=== PATIENT | female | born 1945 | race Caucasian/White ===

== ENCOUNTER → 2023-06-09 06:54 | Outpatient (REF) | payer MEDICARE, OTHER, SELFPAY ==
[2023-06-09 07:55] LABS: % Basophils 0.6 % (0-2); % Eosinophils 2.9 % (0-6); % Immature Granulocytes 0.2 % (0-0.5); % Lymphocytes 27.5 % (20.5-51.1); % Monocytes 10.3 % (1.7-9.3); % Neutrophils 58.5 % (42.2-75.2); Absolute Eosinophils 0.2 10^3/uL (0-0.7); Absolute Lymphocytes 1.8 10^3/uL (1.2-3.4); Absolute Monocytes 0.7 10^3/uL (0.1-0.6); Absolute Neutrophils 3.9 10^3/uL (1.4-6.5); Hematocrit 38.3 % (37.0-47.0); Hemoglobin 13.2 g/dL (12.0-16.0); Mean Corp Hgb Conc. 34.5 g/dL (33.0-37.0); Mean Corpuscular Hgb 31.1 pg (27.0-31.0); Mean Corpuscular Volume 90.1 fL (81.0-99.0); Mean Platelet Volume 11.3 fL (7.4-10.4); Nucleated Red Blood Cells % 0 %; Platelet Count 217 10^3/uL (130-400); Red Blood Cell Count 4.25 10^6/uL (4.20-5.40); Red Cell Dist. Width 13.4 % (11.5-14.5); White Blood Cell Count 6.6 10^3/uL (4.8-10.8)
[2023-06-09 08:24] LABS: ALT (SGPT) 15 U/L (0-35); AST (SGOT) 24 U/L (14-36); Albumin 4.1 g/dl (3.5-5.0); Alkaline Phosphatase 102 U/L (38-126); Blood Urea Nitrogen 23 mg/dl (7-17); Calcium 9.2 mg/dl (8.4-10.2); Carbon Dioxide 24 mmol/L (22-30); Chloride 107 mmol/L (98-107); Glucose 78 mg/dl (70-99); HDL Cholesterol 87 mg/dl; LDL Cholesterol, Calculated 56 mg/dl; Potassium 4.2 mmol/L (3.5-5.1); Sodium 137 mmol/L (135-145); Total Bilirubin 0.5 mg/dl (0.2-1.3); Total Cholesterol 155 mg/dl (50-199); Total Protein 6.6 g/dl (6.3-8.2); Triglyceride 63 mg/dl (10-149); Very Low Density Lipoprotein 12 mg/dl (0-30); eGFR > 60.00
== END ==
LOC: REG 06:54
PROVIDERS: ATTENDING PHYSICIAN Physician Assistant
DX: R35.0 Frequency of micturition (principal); I10 Essential (primary) hypertension; E78.5 Hyperlipidemia, unspecified; I25.10 Atherosclerotic heart disease of native coronary artery without angina pectoris; K21.9 Gastro-esophageal reflux disease without esophagitis; J84.9 Interstitial pulmonary disease, unspecified
CPT/HCPCS: 36415; 80053; 80061; 84443; 85025

== ENCOUNTER 2023-06-26 19:54 | Emergency (ER) | payer MEDICARE, OTHER, SELFPAY ==
[2023-06-26 19:56] VITALS: BP 160/90
--- NOTE | 2023-06-26 22:23 | ED.GENMED ---
History of Present Illness
General
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
Source: patient
Exam Limitations: none
Time Seen by Provider: 06/26/23 21:47
Travel History
Have you had any contact with someone who has COVID-19?: No
Do you have any symptoms of coronavirus? Fever > 100 degrees, chills, cough, shortness of breath, sore throat, loss of taste or smell, muscle aches, or headache?: No
History of Present Illness
History of Present Illness:
This is a 77 year old female that comes in with c/o bladder issues. States that she started with symptoms of a bladder infection in February. States that she has this pelvic pressure. Patient has had a urine done and it was negative. States that
she has had lower abd discomfort. Today she was out and she felt something in her underwear like she was wearing a pad. State that she went to check and there was a like a Tennis ball hanging out of her Vagina. States that since that time it has
receded. States that she has seen her PCP and was told to follow up with the Urologist. Denies any fever, chills, chest pain, SOB, nausea, vomiting, diarrhea, headache, dizziness, urinary burning.
Past History
Past History
ED Past Medical History: CAD (40% LAD), COPD (Mild, ), GERD, HTN, Hypercholesterolemia, [place], Psychiatric (Anxiety) and Other (Vocal cord dysfunction, back and neck pain, UTi, Anemia, GI bleeding, Vertigo, )
ED Past Surgical History: Cardiac (Stent, ), Gynecological (Partial hysterectomy, Ovary then removed), Orthopedic (Carpal tunnel, ), Tonsilectomy and Other (Cataracts, Polyp removed from throat, )
Social History
Tobacco: Former smoker
Alcohol: Occasional
Drug: None
Personal:
Living: with family
Employment: Retired
Family History
Family History: CAD
Review of Systems
Review of Systems
All Other Systems: ROS reviewed and negative except as documented in HPI and ROS
Constitutional: Reports no symptoms; Denies fever or chills
EENT: Reports no symptoms
Respiratory: Reports no symptoms; Denies cough or trouble breathing
Cardiac: Reports no symptoms; Denies chest pain
ABD/GI: Reports abdominal pain (Lower abd discomfort); Denies nausea, vomiting or diarrhea
: Reports other (Something like a tennis ball hanging out of her Vagina); Denies dysuria, frequency or urgency
Musculoskeletal: Reports no symptoms
Skin: Reports no symptoms
Neurological: Reports no symptoms; Denies dizzy or headache
Psychiatric: Reports no symptoms
Phy Exam
General Physical Exam
General Presentation: well appearing and no apparent distress
General age: appears stated age
General Skin: warm and dry
General Habitus: elderly
General Mental: alert
General Hydration: appears well hydrated
ENT Exam
ENT Exam: TM's normal, pharynx normal and neck supple
Eye Exam
Eye Exam: EOMI
Cardiovascular Exam
Cardiovascular Exam: regular rate/rhythm, no edema, no murmur and normal peripheral pulses
Pulmonary Exam
Pulmonary Exam: lungs clear, no respiratory distress, no rales, chest non tender, no crackles, no rhonchi, no wheezing and no cough
Gastrointestinal Exam
Gastrointestinal Exam: normal bowel sounds, non tender, soft, no organomegaly, no pulsatile mass and non distended
Genitourinary Exam Female
Vaginal Exam: normal (Negative for Bladder prolapse at this time)
Musculoskeletal Exam
Musculoskeletal Exam: full ROM and no edema
Skin Exam
Skin Exam: normal color, warm/dry, no rash and no petechia
Psychiatric Exam
Psychiatric Exam: normal mood/affect
Course
Orders/Labs/Results
Orders:
Orders
06/26/23 22:17
Urinalysis Reflex To Culture Urgent
Date Specimen was Collected: 06/26/23
Time Specimen was Collected: 22:16
Urine negative for infection.
Vital Signs
Initial and Last Documented VS:
Initial Vital Signs
Temp Pulse Resp BP Pulse Ox
98.1 F 85 18 160/90 95
06/26/23 19:56 06/26/23 19:56 06/26/23 19:56 06/26/23 19:56 06/26/23 19:56
Last Documented Vital Signs
Temp Pulse Resp BP Pulse Ox
98.1 F 64 18 127/66 97
06/26/23 19:56 06/26/23 22:30 06/26/23 22:30 06/26/23 22:30 06/26/23 22:30
MDM/Problems Addressed
Differential Diagnosis Includes:
Bladder prolapse, Pelvic floor dysfunction
MDM/Problems Addressed:
This is a 77 year old female that comes in with c/o a tennis ball hanging out of her vagina. States that since this happened it has receded and she was thinking of going home. States that she had had lower abd discomfort.
Will check urine. Offered patient a CT scan of the pelvic area but patient at this time refused. 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 Patient will be discharge after urine resulted.
Back into see patient. Explained that her urine is negative for any infection. Will discharge patient home.
Chronic conditions affecting care:
NA
Acute Exacerbation and/or Progression of Chronic Illness:
NA
*Pulse Oximetry
Patient hypoxic: no
*EKG
Interpreted by ED Provider?: NA
Rate: EKG- N/A
*Stop Attacher Interpretation
Rate: Stop Attacher- N/A
*Critical Care Note
Total Time (30-74mins, 75-104mins- exclusive of procedures): Not Applicable
ED Attending Note
-
Portions of this chart may have been created with voice recognition software.� Occasional wrong word or��sound alike� substitutions may have occurred due to the inherent limitations of voice recognition software.
Discharge Plan
Departure
Patient Disposition: Home (Routine Discharge)
Date of Disposition: 06/26/23
Time of Disposition: 23:28
Patient with high blood pressure during this ER visit?: Yes
Condition: Good
Covid-19: Not Applicable
Discharge Problem:
Possible bladder prolapse
Instructions: Cystocele and Rectocele (DC), BLOOD PRESSURE
Prescriptions:
No Action
aspirin 81 MG tablet,delayed release (DR/EC)
81 mg PO HS
Patient Comments:
Magnesium/Vit D/Tumeric
1 tab PO DAILY@1400
losartan 50 mg Tablet
50 mg PO BID
calcium carbonate 500 mg calcium (1,250 mg) Tablet
1,000 mg PO DAILY
metoprolol succinate 25 mg Tablet Extended Release 24 Hr
25 mg PO DAILY
buspirone 15 mg Tablet
15 mg PO BID
rosuvastatin 10 mg Tablet
10 mg PO HS
cyanocobalamin (vitamin B-12) 1,000 mcg Tablet
1,000 mcg PO DAILY
pantoprazole [Protonix] 40 mg tablet,delayed release (DR/EC)
40 mg PO BID 30 Days Qty: 60 0RF
Referrals:
Kelli Hernandez PA-C [Family Provider] -
Madhu Durán MD [Active] - As needed
Activity Restrictions/Additional Instructions:
As discussed, at this time there is no sign of bladder prolapse. Your urine is negative for infection. You have been given the name of a Urologist if needed for further evaluation. IF YOU HAVE ANY OTHER CONCERNS PLEASE RETURN TO THE EMERGENCY ROOM.
Interventions
Interventions:
*Risk Screen - Suicide Last Done: 06/26/23 19:56
*General Assessment Last Done: 06/26/23 19:56
*Neglect/Abuse Screening Last Done: 06/26/23 19:56
ED- Fall Risk Assessment Last Done: 06/26/23 22:25
ED-Female Genitourinary Assessment Last Done: 06/26/23 22:24
Discharge Date and Time
Print Language: ALBANIAN
[2023-06-26 22:25] LABS: Urine Albumin Negative (Neg - Trace); Urine Bilirubin Negative (Negative); Urine Character Clear (Clear); Urine Color Straw; Urine Glucose Negative (Negative); Urine Ketone Negative (Negative); Urine Leukocyte Negative (Negative); Urine Nitrite Negative (Negative); Urine Occult Blood Negative (Negative); Urine Urobilinogen Negative (Neg - 1+)
[2023-06-26 22:30] VITALS: BP 127/66
== END 2023-06-26 23:36 | disposition home or self-care (01) ==
LOC: EMR 19:54
PROVIDERS: Clinical Nurse Specialist Family Health; EMERGENCY PHYSICIAN Emergency Medicine; FAMILY PHYSICIAN Physician Assistant
DX: R10.2 Pelvic and perineal pain (principal); I10 Essential (primary) hypertension; Z87.891 Personal history of nicotine dependence
CPT/HCPCS: 99283; 81003

== ENCOUNTER 2023-08-19 08:28 | Emergency (ER) | payer MEDICARE, OTHER, SELFPAY ==
[2023-08-19 08:29] VITALS: BP 131/83
--- NOTE | 2023-08-19 09:09 | ED.GENMED ---
History of Present Illness
General
Chief Complaint: Cold/Flu/URI Symptoms
Source: patient
Exam Limitations: none
Time Seen by Provider: 08/19/23 08:50
Nursing documentation reviewed up to this point in time: agreed with
Travel History
Have you had any contact with someone who has COVID-19?: Yes
Comment: tested COVID + 08/14
Do you have any symptoms of coronavirus? Fever > 100 degrees, chills, cough, shortness of breath, sore throat, loss of taste or smell, muscle aches, or headache?: Yes
Symptoms:: tested COVID + 08/14
History of Present Illness
History of Present Illness:
77-year-old female with past medical history as documented presents to the emergency room for evaluation of fatigue, malaise, headaches, cough in the setting of known COVID infection. Patient reports that she is on day 11 of illness. She says that
she started with sore throat since persistent nonproductive cough, headaches, severe nasal congestion, poor appetite, severe fatigue and malaise. She says that she is concerned that her symptoms or not improving and that her primary doctor would
not see her and so she came to the emergency room to be assessed. She denies any chest pain or shortness of breath. She denies any nausea or vomiting. She denies any abdominal pain. No diarrhea. She denies any other complaints. She is
vaccinated for COVID. She was never prescribed Paxlovid after testing positive.
Past History
Past History
ED Past Medical History: CAD (40% LAD), COPD (Mild, ), GERD, HTN, Hypercholesterolemia, [place], Psychiatric (Anxiety) and Other (Vocal cord dysfunction, back and neck pain, UTi, Anemia, GI bleeding, Vertigo, )
ED Past Surgical History: Cardiac (Stent, ), Gynecological (Partial hysterectomy, Ovary then removed), Orthopedic (Carpal tunnel, ), Tonsilectomy and Other (Cataracts, Polyp removed from throat, )
Social History
Tobacco: Former smoker
Alcohol: Occasional
Drug: None
Personal:
Living: with family
Employment: Retired
Family History
Family History: CAD
Review of Systems
Review of Systems
All Other Systems: ROS reviewed and negative except as documented in HPI and ROS
Constitutional: Reports fever, fatigue and chills
EENT: Reports sore throat and runny nose
Respiratory: Reports cough; Denies trouble breathing
Cardiac: Denies chest pain or palpitations
ABD/GI: Reports anorexia; Denies abdominal pain, nausea, vomiting or diarrhea
: Denies flank pain
Musculoskeletal: Denies neck pain or back pain
Neurological: Reports headache; Denies weakness or numbness
Phy Exam
Physical Exam
Physical Exam:
General: Awake, alert, oriented x3; no acute distress
Head: Normocephalic, atraumatic
Eyes: Conjunctiva normal, pupils equal round reactive to light bilaterally
Throat: Airway intact, handling secretions, slightly dry mucous membrane
Neck: Trachea midline, supple without meningismus
Lungs: Clear to auscultation bilaterally, no wheezing, rales, rhonchi; occasional cough
Heart: Regular rate and rhythm, no murmurs, gallops, or rubs
Abd: Soft, non distended, nontender
Neuro: Cranial nerves grossly intact, speech fluid
Skin: no rash
Extremities: No edema in extremities, warm well-perfused
Scores
Heart Failure Risk
Heart Failure Risk Score: Not Applicable
Heart Score for Chest Pain Patients
STEMI patient?: Not applicable
Withdrawal Assessment of Alcohol
Withdrawal Assessment Completed?: Not applicable
Course
Orders/Labs/Results
Orders:
Orders
08/19/23 09:07
0.9% Sodium Chloride 500 ml [Nss] 500 ml IV BOLUS
Ketorolac [Toradol] 15 mg IV NOW STA
CR Chest - 2 Views Urgent
Comment:
Reason For Exam: cough, weakness
08/19/23 09:18
Pseudoephedrine [Sudafed] 30 mg PO NOW STA
08/19/23 09:21
Complete Blood Count/With Diff Urgent
Comprehensive Metabolic Panel Urgent
Magnesium Urgent
08/19/23 09:27
Dexamethasone Sod Phosphate [Decadron] 10 mg IV NOW STA
Abnormal Lab Results
08/19/23
09:21
Absolute Monos (auto) 0.8 H 10^3/uL
(0.1-0.6)
Monocytes % 10.9 H %
(1.7-9.3)
BUN 27 H mg/dl
(7-17)
08/19/23 09:21
08/19/23 09:21
Vital Signs
Initial and Last Documented VS:
Initial Vital Signs
Temp Pulse Resp BP Pulse Ox
37.7 C 80 18 131/83 98
08/19/23 08:29 08/19/23 08:29 08/19/23 08:29 08/19/23 08:29 08/19/23 08:29
Last Documented Vital Signs
Temp Pulse Resp BP Pulse Ox
37.7 C 59 16 112/60 97
08/19/23 08:29 08/19/23 09:16 08/19/23 09:16 08/19/23 09:16 08/19/23 09:16
MDM/Problems Addressed
Differential Diagnosis Includes:
Persistent viral syndrome, pneumonia, electrolyte derangements
MDM/Problems Addressed:
77-year-old female presents for evaluation of malaise, cough, headaches, congestion in the setting of known COVID infection�she has been sick for the past 11 days and is concerned because she is not improving. Her vital signs here are normal.
Physical exam as above. Will check basic lab work to rule out any electrolyte derangements that she has had decreased p.o. intake she says. Will check chest x-ray to rule out pneumonia although somewhat lower suspicion given reassuring vital signs
and clear lungs on auscultation. Will treat symptomatically with fluids, Toradol, Decadron. Will reassess after the above.
Labs reviewed: CBC and CMP unremarkable. Chest x-ray reviewed by me shows no pneumonia. Patient feeling much better after symptomatic treatment. Suspect she is still symptomatic from COVID infection. She has just been taking Tylenol as
needed�advised to take Tylenol plus Motrin, trial of Flonase and encouraged good oral hydration. She is beyond the window of benefit for Paxlovid. She feels comfortable with this plan. Spoke about return precautions all questions answered.
*Radiology
Radiology exam reviewed: preliminary read by ED provider
*Pulse Oximetry
Patient hypoxic: no
*Critical Care Note
Total Time (30-74mins, 75-104mins- exclusive of procedures): Not Applicable
Data Reviewed
Source: patient and records
ED Attending Note
-
Portions of this chart may have been created with voice recognition software.� Occasional wrong word or��sound alike� substitutions may have occurred due to the inherent limitations of voice recognition software.
Discharge Plan
Departure
Patient Disposition: Home (Routine Discharge)
Date of Disposition: 08/19/23
Time of Disposition: 10:19
Patient with high blood pressure during this ER visit?: No
Discharge Problem:
COVID-19, Acute viral syndrome
Instructions: Viral Syndrome (DC), COVID-19 ED
Prescriptions:
No Action
aspirin 81 MG tablet,delayed release (DR/EC)
81 mg PO HS
Patient Comments:
Magnesium/Vit D/Tumeric
1 tab PO DAILY@1400
losartan 50 mg Tablet
50 mg PO BID
calcium carbonate 500 mg calcium (1,250 mg) Tablet
1,000 mg PO DAILY
metoprolol succinate 25 mg Tablet Extended Release 24 Hr
25 mg PO DAILY
buspirone 15 mg Tablet
15 mg PO BID
rosuvastatin 10 mg Tablet
10 mg PO HS
cyanocobalamin (vitamin B-12) 1,000 mcg Tablet
1,000 mcg PO DAILY
pantoprazole [Protonix] 40 mg tablet,delayed release (DR/EC)
40 mg PO BID 30 Days Qty: 60 0RF
Referrals:
Kelli Hernandez PA-C [Family Provider] - Follow up in 5-7 days
Activity Restrictions/Additional Instructions:
For the next few days you should take the following medications to help with your symptoms:
Ibuprofen 400 mg every 6 hours
Acetaminophen 1000 mg every 6 hours
Flonase 2 sprays in each nostril once daily
You can also use saline nasal rinses which can be purchased at the pharmacy to help with nasal congestion
In addition to the above medications you should make sure that you are eating at least 3 good meals a day and are drinking plenty of fluids (at least 64 ounces).
Thank you for visiting the Emergency Department at [facility].
1. Please schedule a follow up appointment as directed. Call first thing tomorrow morning to make an appointment.
2. If indicated, please take your medications as instructed and indicated on discharge paperwork.
3. If any of your symptoms do not improve, or persist, or become more severe within 6-12 hours, please return to the emergency department for further care.
4. Please return to the emergency department if you develop a headache, neck pain/stiffness, fever greater than 100.4F, chest pain, shortness of breath, persistent nausea, vomiting, slurred speech, difficulty walking, numbness/tingling, weakness,
signs of infection or any other symptoms that are worrisome to you.
Please call [phone] if you have any questions.
Interventions
Interventions:
*Risk Screen - Suicide Last Done: 08/19/23 08:33
*General Assessment Last Done: 08/19/23 08:29
*Neglect/Abuse Screening Last Done: 08/19/23 08:33
ED- Fall Risk Assessment Last Done: 08/19/23 09:16
*ED COVID-19 Vaccine History Last Done: 08/19/23 08:29
ED- Pulmonary Assessment Last Done: 08/19/23 09:16
Discharge Date and Time
Print Language: [id number]
[2023-08-19 09:14] VITALS: BP 112/60
[2023-08-19 09:15] VITALS: BMI 22.9
[2023-08-19 09:16] VITALS: BP 112/60
[2023-08-19] MEDS: NSS 500 IV (09:25)
[2023-08-19] MEDS: TORADOL 15 MG IV (09:25)
[2023-08-19 09:33] LABS: % Basophils 0.1 % (0-2); % Immature Granulocytes 0.4 % (0-0.5); % Lymphocytes 25.5 % (20.5-51.1); % Monocytes 10.9 % (1.7-9.3); % Neutrophils 62.1 % (42.2-75.2); Absolute Eosinophils 0.1 10^3/uL (0-0.7); Absolute Lymphocytes 1.8 10^3/uL (1.2-3.4); Absolute Monocytes 0.8 10^3/uL (0.1-0.6); Absolute Neutrophils 4.3 10^3/uL (1.4-6.5); Hematocrit 37.9 % (37.0-47.0); Mean Corp Hgb Conc. 34.3 g/dL (33.0-37.0); Mean Corpuscular Hgb 29.9 pg (27.0-31.0); Mean Corpuscular Volume 87.1 fL (81.0-99.0); Mean Platelet Volume 9.9 fL (7.4-10.4); Nucleated Red Blood Cells % 0 %; Platelet Count 281 10^3/uL (130-400); Red Blood Cell Count 4.35 10^6/uL (4.20-5.40); Red Cell Dist. Width 13.3 % (11.5-14.5); White Blood Cell Count 6.9 10^3/uL (4.8-10.8)
[2023-08-19] MEDS: DECADRON 10 MG IV (09:40)
[2023-08-19 09:52] LABS: ALT (SGPT) 11 U/L (0-35); AST (SGOT) 20 U/L (14-36); Albumin 3.9 g/dl (3.5-5.0); Alkaline Phosphatase 92 U/L (38-126); Blood Urea Nitrogen 27 mg/dl (7-17); Calcium 9.4 mg/dl (8.4-10.2); Carbon Dioxide 26 mmol/L (22-30); Chloride 106 mmol/L (98-107); Estimated Creatinine Clearance 43 ml/min; Glucose 88 mg/dl (70-99); Potassium 4.4 mmol/L (3.5-5.1); Sodium 140 mmol/L (135-145); Total Bilirubin 0.5 mg/dl (0.2-1.3); Total Protein 6.6 g/dl (6.3-8.2); eGFR > 60.00
[2023-08-19 10:11] VITALS: BP 124/62
== END 2023-08-19 10:39 | disposition home or self-care (01) ==
LOC: EMR 08:28
PROVIDERS: EMERGENCY PHYSICIAN Emergency Medicine; FAMILY PHYSICIAN Physician Assistant
DX: U07.1 COVID-19 (principal); Z87.891 Personal history of nicotine dependence
CPT/HCPCS: 99284; 96374; 96375; 96361; 71046; 80053; 83735; 85025

== ENCOUNTER → 2023-10-12 10:15 | Outpatient (REF) | payer MEDICARE, OTHER, SELFPAY | LOC: RAD 10:15 | PROVIDERS: ATTENDING PHYSICIAN Nurse Practitioner Family | DX: U09.9 Post COVID-19 condition, unspecified (principal); R06.2 Wheezing | CPT/HCPCS: 71046 ==

== ENCOUNTER → 2023-10-12 11:00 | Outpatient (REF) | payer MEDICARE, OTHER, SELFPAY | LOC: DHCBC/DCA 11:00 | PROVIDERS: ATTENDING PHYSICIAN Internal Medicine Cardiovascular Disease; FAMILY PHYSICIAN Physician Assistant | DX: R07.89 Other chest pain (principal); I25.10 Atherosclerotic heart disease of native coronary artery without angina pectoris; I10 Essential (primary) hypertension; R06.02 Shortness of breath | CPT/HCPCS: 78452; 93017; A9500 ==

== ENCOUNTER → 2024-05-11 13:22 | Outpatient (REF) | payer MEDICARE, OTHER, SELFPAY | LOC: RAD 13:22 | PROVIDERS: ATTENDING PHYSICIAN Nurse Practitioner Adult Health; FAMILY PHYSICIAN Nurse Practitioner Family | DX: J44.9 Chronic obstructive pulmonary disease, unspecified (principal); J43.2 Centrilobular emphysema | CPT/HCPCS: 71250 ==

== ENCOUNTER → 2024-11-22 12:54 | Outpatient (REF) | payer MEDICARE, OTHER, SELFPAY | LOC: RAD 12:54 | PROVIDERS: ATTENDING PHYSICIAN Nurse Practitioner Family; OTHER PHYSICIAN Internal Medicine Interventional Cardiology | DX: M53.9 Dorsopathy, unspecified (principal); I10 Essential (primary) hypertension; Z82.49 Family history of ischemic heart disease and other diseases of the circulatory system; M54.9 Dorsalgia, unspecified | CPT/HCPCS: 71260; Q9967 ==